=== PATIENT | male | born 1950 | race Caucasian/White ===

== ENCOUNTER 2017-02-27 15:24 | Inpatient (IN) | payer MEDICARE, OTHER ==
[~2017-02-27] VITALS: Ht 177.8 cm; Wt 115.4 kg
[2017-02-27] MEDS ORDERED: dilTIAZem 25 MG/5 ML VIAL IVP ONE (16:00)
[2017-02-27] MEDS ORDERED: IV DEXTROSE 5% 0 ML IV ONE (16:01)
--- NOTE | 2017-02-27 16:02 | RAD ---
INDICATION: atrial flutter with RVR COMPARISON: None. FINDINGS: Single view of chest obtained. No definite focal airspace consolidation. Cardiac silhouette is enlarged. No gross osseous destructive lesion. IMPRESSION: Enlarged cardiac silhouette without definite focal airspace consolidation. Air-filled structure partially seen at upper abdomen. Could be one of the loops of bowel but if there is abdominal symptoms dedicated imaging of the abdomen could be obtained to more completely evaluate the structure since it is only partially seen.
[2017-02-27 16:14] LABS: BASO % 0 % (0-3); EOS # 0.1 x10^3/uL (0.0-0.7); EOS % 1 % (0-3); HEMATOCRIT 40.9 % (39.0-53.0); HEMOGLOBIN 14.4 g/dL (13.0-17.5); LYMPH # 2.7 x10^3/uL (1.0-4.8); LYMPH % 28 % (24-48); MEAN CORPUSCULAR HEMOGLOBIN 32 pg (25-35); MEAN CORPUSCULAR HGB CONC 35 g/dL (31-37); MEAN CORPUSCULAR VOLUME 92 fL (79-100); MONO # 0.9 x10^3/uL (0.0-1.1); MONO % 10 % (0-9); NEUT # 5.9 x10^3uL (1.8-7.7); NEUT % 61 % (31-73); PLATELET COUNT 175 x10^3/uL (140-400); RED BLOOD COUNT 4.46 x10^6/uL (4.30-5.70); RED CELL DISTRIBUTION WIDTH 13.3 % (11.5-14.5); WHITE BLOOD COUNT 9.7 x10^3/uL (4.0-11.0)
--- NOTE | 2017-02-27 16:32 | PHYS DOC ---
Past History Past Medical History: No Pertinent History Smoking: Non-smoker Adult General Chief Complaint Chief Complaint: RAPID HEART RATE HPI HPI 66-year-old male patient was seen by his primary care physician today because of right shoulder pain for 6 weeks and had heart rate of 150s with atrial flutter in EKG and sent to ER for evaluation. Patient denies chest pain, shortness of breath, palpitation, history of irregular heartbeat. Patient complaining of chronic dizziness with a standing position without a new change recently. Patient had a long airplane trip from [place] yesterday without complaining of leg pain or shortness of breath or history of DVT and PE. Review of Systems Review of Systems Constitutional: Denies fever or chills [] Eyes: Denies change in visual acuity, redness, or eye pain [] HENT: Denies nasal congestion or sore throat [] Respiratory: Denies cough or shortness of breath [] Cardiovascular: No additional information not addressed in HPI [] GI: Denies abdominal pain, nausea, vomiting, bloody stools or diarrhea [] : Denies dysuria or hematuria [] Musculoskeletal: Denies back pain, reports joint pain [] Integument: Denies rash or skin lesions [] Neurologic: Denies headache, focal weakness or sensory changes [] Endocrine: Denies polyuria or polydipsia [] All other systems were reviewed and found to be within normal limits, except as documented in this note. Current Medications Current Medications Current Medications Medications (Trade) Dose Ordered Sig/Dez Start Time Stop Time Status Last Admin Dose Admin Dextrose 0 ml @ As Directed STK-MED ONCE 02/27/17 16:01 02/27/17 16:02 DC Diltiazem HCl (Cardizem) 125 mg STK-MED ONCE 02/27/17 16:02 02/27/17 16:03 DC Diltiazem HCl 125 mg/Dextrose 125 ml @ 0 mls/hr 1X ONCE 02/27/17 16:00 02/27/17 16:01 DC Allergies Allergies Allergies Coded Allergies Type Severity Reaction Last Updated Verified Penicillins Allergy Unknown 02/27/17 Yes Physical Exam Physical Exam Constitutional: Well developed, well nourished, no acute distress, non-toxic appearance. [] HENT: Normocephalic, atraumatic, bilateral external ears normal, oropharynx moist, no oral exudates, nose normal. [] Eyes: PERRLA, EOMI, conjunctiva normal, no discharge. [] Neck: Normal range of motion, no tenderness, supple, no stridor. [] Cardiovascular:Irregular regular rhythm with tachycardia, no murmur [] Lungs & Thorax: Bilateral breath sounds clear to auscultation [] Abdomen: Bowel sounds normal, soft, no tenderness, no masses, no pulsatile masses. [] Skin: Warm, dry, no erythema, no rash. [] Back: No tenderness, no CVA tenderness. [] Extremities: No tenderness, no cyanosis, no clubbing, ROM intact, no edema. [] Neurologic: Alert and oriented X 3, normal motor function, normal sensory function, no focal deficits noted. [] Psychologic: Affect normal, judgement normal, mood normal. [] Current Patient Data Vital Signs Vital Signs Date Time Temp Pulse Resp B/P (MAP) Pulse Ox O2 Delivery O2 Flow Rate FiO2 02/27/17 16:08 112 137/71 EKG EKG [EKG interpreted by me. EKG at 1537 showed atrial flutter at a rate of 110, T wave abnormality in inferior leads Radiology/Procedures Radiology/Procedures Chest x-ray was unremarkable] Course & Med Decision Making Course & Med Decision Making Pertinent Labs and Imaging studies reviewed. (See chart for details) Evaluation of patient in ER showed 66-year-old male patient sent by his primary care physician with asymptomatic atrial flutter with heart rate of 150s. Heart rate decreased to 70s with bolus of Cardizem. Patient had atrial flutter at rate of 80 on Cardizem drip. Labs was unremarkable except for mild elevation of d-dimer. CT of chest was negative for PE. Patient had 1 dose of Lovenox ER per recommendation of accepting physician. Dr. Leal accepted admission at 1717. Dragon Disclaimer Dragon Disclaimer This electronic medical record was generated, in whole or in part, using a voice recognition dictation system. Departure Departure: Impression: Primary Impression: Atrial flutter with rapid ventricular response Additional Impressions: Elevated d-dimer Chronic right shoulder pain Disposition: ADMITTED INPATIENT (At 1717) Admitting Physician: Kandice Leal Referrals: FARIDEH GALVEZ MD (PCP) Problem Qualifiers ISAAK VILA MD Feb 27, 2017 16:32
[2017-02-27 16:35] LABS: ALBUMIN 3.7 g/dL (3.4-5.0); ALBUMIN/GLOBULIN RATIO 0.9 (1.0-1.7); CALCIUM 8.8 mg/dL (8.5-10.1); CREATININE 0.8 mg/dL (0.7-1.3); POTASSIUM 4.2 mmol/L (3.5-5.1); TOTAL BILIRUBIN 0.4 mg/dL (0.2-1.0); TOTAL PROTEIN 7.8 g/dL (6.4-8.2)
--- NOTE | 2017-02-27 17:10 | EKG ---
[address] [address] Test Date: 2017-02-27 Test Time: 15:37:24 Pat Name: SARTHAK HUI Department: Room: Gender: M Bookkeeping Assistant: PITA : [id number] Requested By: ISAAK VILA Order Number: [id number] Reading MD: Riley Segura MD Measurements Intervals Dawson Rate: 110 P: [place]: QRS: 91 QRSD: 98 T: 31 QT: 348 QTc: 477 Interpretive Statements ATRIAL FLUTTER, VARIABLE CONDUCTION NSST CHANGES Electronically Signed On 03-05-2017 10:18:09 CORPORATE DEVELOPMENT MANAGER by Riley Segura MD
[2017-02-27] MEDS ORDERED: ENOXAPARIN ** NOTE DOSE ** SYRINGE SQ ONE (17:30)
[2017-02-27] MEDS ORDERED: IOHEXOL 300 MG/ML 75 ML VIAL. IV ONE (17:30)
--- NOTE | 2017-02-27 18:02 | RAD ---
CTA scan of the Chest with Contrast (Pulmonary Embolism protocol) 02/27/2017 Clinical History: Atrial flutter with rapid ventricular response. Elevated d-dimer. Technique: After the intravenous administration of 75 cc of Omnipaque 300, contiguous, 0.625 mm axial sections were obtained through the chest. 2 mm axial and 3D MIP coronal and sagittal reconstructed images were obtained. One or more of the following individualized dose reduction techniques were utilized for this study: 1. Automated exposure control. 2. Adjustment of the mA and/or kV according to patient size. 3. Use of iterative reconstruction technique. Findings: No filling defect is seen within the major branches of either pulmonary artery. There is no CT evidence of pulmonary embolism. The heart is mildly enlarged. Atherosclerotic calcification of the thoracic aorta is seen. The thoracic aorta is tortuous but tapers normally. Minimal dependent subsegmental atelectasis is seen involving both lungs. No area of consolidation, pleural effusion or pneumothorax is seen. Impression: There is no CT evidence of pulmonary embolism. Electronically signed by: Wili Livingston MD (02/27/2017 5:57 PM) [facility]
[2017-02-27 19:20] VITALS: BP 149/71
[2017-02-27] MEDS ORDERED: IBUP200T44 PO (20:17)
[2017-02-27] MEDS ORDERED: PANT20TA58 PO (20:17)
[2017-02-27 20:20] VITALS: BP 133/82
[2017-02-27] MEDS: IBUPROFEN 200 MG TABLET PO PRN (20:46)
[2017-02-27 21:20] VITALS: BP 140/67
[2017-02-27 22:20] VITALS: BP 118/72
[2017-02-27 23:20] VITALS: BP 128/78
[2017-02-28] VITALS (14 sets, daily range): BP systolic 108–146; BP diastolic 58–93
[2017-02-28] MEDS: IBUPROFEN 200 MG TABLET PO PRN ×2 (06:21→14:37)
[2017-02-28] MEDS: PANTOPRAZOLE 40 MG TABLET. PO SCH (08:38)
[2017-02-28] MEDS ORDERED: LIDOCAINE (700MG/PATCH) PATCH. TD PRN (14:45)
--- NOTE | 2017-02-28 14:54 | PDOC2 ---
CONSULT Date of Admission DATE: 02/28/17 TIME: 14:53 Reason for Consult: Atrial flutter Referring Physician: Dr. Leal Chief Complaint Shoulder pain Source: Chart review, Patient Problem List Problems Medical Problems: (1) Atrial flutter with rapid ventricular response Status: Acute (2) Chronic right shoulder pain Status: Acute (3) Elevated d-dimer Status: Acute History of Present Illness 66-year-old male was found to be tachycardic when he presented to his PCPs office with right shoulder pain and was diagnosed with atrial flutter on EKG with heart rate 150 bpm. He was admitted for further management. Patient denied any palpitations as such. He also denied any previous cardiac history. He apparently came back recently from a one-month cruise in [facility] [place] but denied any excessive alcohol intake/binge drinking. He denied any chest pain, orthopnea/PND or syncope. Past Medical History Hyperlipidemia Past Surgical History Cataract and retinal surgery Family History No history of premature coronary artery disease Social History Patient admitted to occasional alcohol intake but denied any smoking or drug abuse Current Medications Current Medications Diltiazem HCl (Cardizem) 20 mg 1X ONCE IVP Last administered on 02/27/17at 16:08 ; Start 02/27/17 at 16:00; Stop 02/27/17 at 16:01; Status DC Diltiazem HCl 125 mg/Dextrose 125 ml @ 0 mls/hr 1X ONCE IV Last administered on 02/27/17at 16:00; Start 02/27/17 at 16:00; Stop 02/27/17 at 16:01; Status DC Dextrose 0 ml @ As Directed STK-MED ONCE IV ; Start 02/27/17 at 16:01; Stop at 16:02; Status DC Diltiazem HCl (Cardizem) 125 mg STK-MED ONCE IV ; Start 02/27/17 at 16:02; Stop 02/27/17 at 16:03; Status DC Iohexol (Omnipaque 300 Mg/ml) 75 ml 1X ONCE IV Last administered on 02/27/17at 17:31; Start 02/27/17 at 17:30; Stop 02/27/17 at 17:31; Status DC Enoxaparin Sodium (Lovenox 120mg Syringe) 120 mg 1X ONCE SQ Last administered on 02/27/17at 18:25; Start 02/27/17 at 17:30; Stop 02/27/17 at 17:31; Status DC Diltiazem HCl 125 mg/Dextrose 125 ml @ 0 mls/hr CONT PRN IV SEE I/O RECORD Last administered on 02/28/17at 08:39; Start 02/27/17 at 19:45 Ibuprofen (Motrin) 200 mg PRN Q4HRS PRN PO PAIN Last administered on 02/28/17at 14:37; Start 02/27/17 at 20:45 Pantoprazole Sodium (Protonix) 40 mg DAILYAC PO Last administered on 02/28/17at 08:38; Start 02/28/17 at 07:30 Lidocaine (Lidoderm) 1 patch PRN DAILY PRN TD PAIN; Start 02/28/17 at 14:45 Active Scripts Active Reported Motrin Ib (Ibuprofen) 200 Mg Tablet 200 Mg PO PRN Q4HRS PRN Protonix (Pantoprazole Sodium) 20 Mg Tablet.dr 20 Mg PO DAILY07 Allergies: Coded Allergies: Penicillins (Verified Allergy, Intermediate, 02/28/17) PSYCHOLOGICAL ROS: No: Hallucinations Eyes: No: Loss of vision HEENT: No: Epistaxis Respiratory: No: Hemoptysis, Shortness of breath Cardiovascular: No: Chest Pain Gastrointestinal: No: Vomiting, Diarrhea Genitourinary: No: Hen[place]ia Neurological: No: Seizures Skin: No: Rash General: Alert, Oriented X3 HEENT: Atraumatic, PERRLA Lungs: Clear to auscultation Heart: Other (heart rate is irregular) Abdomen: Soft Extremities: No edema Psych/Mental Status: Mood NL VITALS Vital Signs Date Time Temp Pulse Resp B/P (MAP) Pulse Ox O2 Delivery O2 Flow Rate FiO2 02/28/17 14:13 97.8 02/28/17 13:47 100 138/73 (94) 02/28/17 09:30 99 Room Air 02/28/17 06:20 15 Labs Laboratory Tests Test 02/27/17 15:45 White Blood Count 9.7 x10^3/uL (4.0-11.0) Red Blood Count 4.46 x10^6/uL (4.30-5.70) Hemoglobin 14.4 g/dL (13.0-17.5) Hematocrit 40.9 % (39.0-53.0) Mean Corpuscular Volume 92 fL (79-100) Mean Corpuscular Hemoglobin 32 pg (25-35) Mean Corpuscular Hemoglobin Concent 35 g/dL (31-37) Red Cell Distribution Width 13.3 % (11.5-14.5) Platelet Count 175 x10^3/uL (140-400) Neutrophils (%) (Auto) 61 % (31-73) Lymphocytes (%) (Auto) 28 % (24-48) Monocytes (%) (Auto) 10 % (0-9) Eosinophils (%) (Auto) 1 % (0-3) Basophils (%) (Auto) 0 % (0-3) Neutrophils # (Auto) 5.9 x10^3uL (1.8-7.7) Lymphocytes # (Auto) 2.7 x10^3/uL (1.0-4.8) Monocytes # (Auto) 0.9 x10^3/uL (0.0-1.1) Eosinophils # (Auto) 0.1 x10^3/uL (0.0-0.7) Basophils # (Auto) 0.0 x10^3/uL (0.0-0.2) Prothrombin Time 10.4 SEC (9.4-11.4) Prothromb Time International Ratio 1.0 (0.9-1.1) D-Dimer (Mili) 0.91 mg/L (0.00-0.50) Sodium Level 142 mmol/L (136-145) Potassium Level 4.2 mmol/L (3.5-5.1) Chloride Level 106 mmol/L (98-107) Carbon Dioxide Level 26 mmol/L (21-32) Anion Gap 10 (6-14) Blood Urea Nitrogen 16 mg/dL (8-26) Creatinine 0.8 mg/dL (0.7-1.3) Estimated GFR (Cockcroft-Gault) 97.0 BUN/Creatinine Ratio 20 (6-20) Glucose Level 106 mg/dL (70-99) Calcium Level 8.8 mg/dL (8.5-10.1) Magnesium Level 2.0 mg/dL (1.8-2.4) Total Bilirubin 0.4 mg/dL (0.2-1.0) Aspartate Amino Transf (AST/SGOT) 40 U/L (15-37) Alanine Aminotransferase (ALT/SGPT) 36 U/L (16-63) Alkaline Phosphatase 69 U/L (46-116) Creatine Kinase 179 U/L (39-308) Creatine Kinase MB (Mass) 2.8 ng/mL (0.0-3.6) Creatine Kinase MB Relative Index 1.6 % (0-4) Troponin I Quantitative < 0.017 ng/mL (0-0.055) DO-Slz-H-Type Natriuretic Peptide 291 pg/mL (0-124) Total Protein 7.8 g/dL (6.4-8.2) Albumin 3.7 g/dL (3.4-5.0) Albumin/Globulin Ratio 0.9 (1.0-1.7) Assessment/Plan 1. Atrial flutter with RVR: Newly diagnosed. Heart rate better controlled with Cardizem infusion. Change this to by mouth. Start Eliquis for stroke prophylaxis. Check 2-D echo to assess LV systolic function and Lexiscan nuclear stress test to rule out ischemia - these tests could however be done as an outpatient. 2. Gastroesophageal reflux disease: Continue proton pump inhibitors Thank you for your consultation Problems: JOSÉ MANUEL GIANG MD Feb 28, 2017 14:54
[2017-02-28] MEDS ORDERED: ACETAMINOPHEN 325 MG TABLET PO PRN (15:45)
[2017-02-28] MEDS: HYDROcodone/APAP 5/325MG 1 TAB TABLET PO PRN ×2 (18:33→22:27)
--- NOTE | 2017-02-28 18:45 | RAD ---
CT of the right shoulder without contrast. Indication: Severe right shoulder pain. No previous exams for comparison. . Technique: Contiguous axial images are obtained. Multiplanar reformatted images are also obtained. Exposure: One or more of the following individualized dose reduction techniques were utilized for this examination: 1. Automated exposure control 2. Adjustment of the mA and/or kV according to patient size 3. Use of iterative reconstruction technique. Comparison study: None available. Findings: Degenerative changes at the acromioclavicular joint with small undersurface osteophytes. Small degenerative spurs at the glenohumeral joint. No evidence of acute fracture. No dislocation. There is mild calcification at the anterior supraspinatus tendon attachment, likely calcium hydroxyapatite due to calcific tendinitis. No obvious soft tissue abnormality. Visualized right upper lung is grossly clear. IMPRESSION: 1. Primary osteoarthritis. 2. No evidence of acute fracture or dislocation. Electronically signed by: Abhay Nguyen MD (02/28/2017 6:42 PM) [facility]
[2017-02-28] MEDS: ENOXAPARIN ** NOTE DOSE ** SYRINGE SQ SCH (20:24)
--- NOTE | 2017-02-28 22:06 | HP ---
ADMIT DATE: 02/27/2017 HISTORY OF PRESENT ILLNESS: The patient is a 66-year-old male patient who went to see his primary care physician because of right shoulder pain that has been going on for almost 6 weeks and was found to have a heart rate of 150 with atrial flutter in EKG, and was sent to ER for evaluation. The patient denied any chest pain, shortness of breath, palpitation, or history of irregular heartbeat. Did complain of chronic dizziness with standing position without any change recently. He apparently had a long airplane trip from [place] the day before admission without complaining of any leg pain or shortness of breath, has no history of DVT or PE. He was evaluated in the Emergency Room and was basically found to be in atrial flutter with a rate of 110 with T-wave abnormalities in inferior leads and basically, the patient was admitted with atrial fibrillation, rapid ventricular response. As he has elevated D-dimer, he has had CT scan of the chest with PE protocol, which showed that there are no filling defects seen within the major branches of either pulmonary arteries. There is no CT evidence of pulmonary embolism. The heart is mildly enlarged. Atherosclerotic calcification of the thoracic aorta is seen. The thoracic aorta is tortuous, but tapers normally. Minimal dependent subsegmental atelectasis is seen involving both lungs. No area of consolidation, pleural effusion or pneumothorax is seen. The patient was started on a Cardizem drip and was given Lovenox and was admitted with a plan to consult the Cardiology team for further evaluation and treatment. PAST MEDICAL HISTORY: Significant for hyperlipidemia with a strong family history of that. PAST SURGICAL HISTORY: Significant for bilateral retinal detachment surgery, cataract extraction, colonoscopy, and esophagogastroduodenoscopy. ALLERGIES: He is allergic to PENICILLIN. MEDICATIONS: He is on Protonix 20 mg daily as well as ibuprofen as needed. FAMILY HISTORY: Significant for 2 brothers who are younger and the sister that he has also has retinal detachment for both eyes and has a brain tumor that was resected, but left her with just probably cerebellopontine angle neuroma. His father is alive at the age of 87 and has hypertension. Mother is alive at age 85 has PE, uterine cancer and splenectomy. SOCIAL HISTORY: He lives with his significant other for the last 12 years. He has 3 daughters and 1 son from previous marriage. He has never smoked, used to smoke cigars and pipes, but not cigarettes. He drinks 1-2 drinks occasionally. 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 REVIEW OF SYSTEMS: The patient denied any blurring of vision, cataract, glaucoma or macular degeneration. Denied any earache, tinnitus or sensorineural deafness. Denied any nosebleeds, stuffy nose or postnasal drip. Denied any sore throat, sore tongue, toothache, hoarseness of voice or difficulty swallowing. Denied any nausea, vomiting, diarrhea or constipation. Denied any hematemesis, melena or hematochezia. Denied any dysuria, frequency or hematuria. Denied any chest pain, shortness of breath, orthopnea, or paroxysmal nocturnal dyspnea. Did complain of cough with whitish to yellowish sputum. Denied any chills, rigors, or fever. He did complain of dizziness, but denied any vertigo. PHYSICAL EXAMINATION: VITAL SIGNS: On arrival to the Emergency Room, his heart rate was 133, blood pressure was 110/68, temperature was 98.2, respiratory rate was 16 and oxygen saturation was 99%. HEAD, EYES, EARS, NOSE AND THROAT: Showed normocephalic, atraumatic. NECK: Supple. HEART: Showed normal first and second sounds. No gallop, rub or murmur. CHEST: Clear to auscultation. No crepitation or rhonchi. ABDOMEN: Distended, soft, nontender. No guarding or rigidity. No organomegaly. Hernial orifice intact. Bowel sounds normal. NEUROLOGIC: He is awake, alert, responding appropriately. Cranial nerves intact. EXTREMITIES: He moves extremities without difficulty, ambulates without assistance or assistive devices. LABORATORY AND DIAGNOSTIC DATA: Showed a white cell count of 9700, hemoglobin 14.4, hematocrit 41, MCV 92, and platelet count 275,000 with normal manual differential. His serum sodium was 142, potassium 4.2, chloride 106, bicarbonate 26, anion gap of 10, BUN 16, creatinine 0.8, estimated GFR was 97 mL per minute, his glucose 106, calcium was 8.8, magnesium 2. Total bilirubin, AST, ALT, alkaline phosphatase were normal. His total protein was 7.8, albumin 3.7. His prothrombin time was 10.4, INR of 1, and D-dimer was 0.91. His chest x-ray showed enlarged cardiac silhouette without definite focal airspace consolidation, air filled structure partially seen at the upper abdomen, could be one of the loops of bowel, but if there is abdominal symptom, ____ image of the abdomen could be obtained to more completely evaluate the structure since it is only partially seen. He has had CT angio of the chest, which basically showed no filling defects are seen within the major branches of either pulmonary artery. There is no CT evidence of pulmonary embolism. The heart is mildly enlarged. Atherosclerotic calcification of the thoracic aorta is seen. The thoracic aorta is tortuous, but tapers normally. Minimal dependent subsegmental atelectasis is seen involving both lungs. No area of consolidation, pleural effusion, or pneumothorax is seen. ASSESSMENT AND PLAN: Basically, the patient was admitted with new onset atrial fibrillation with rapid ventricular response. He was started on Cardizem drip. We will continue with Lovenox and obviously consult the porcelain technician. Check his thyroid function test and decide on further management accordingly. YAHAIRA ROJO MD DR: DOMINIC/neda JOB#: [id number] / [id number]
[2017-02-28] MEDS ORDERED: diphenhydrAMINE HCL 25 MG CAPSULE PO PRN (22:30)
[2017-03-01] VITALS (10 sets, daily range): BP systolic 104–145; BP diastolic 50–91
[2017-03-01] MEDS: HYDROcodone/APAP 5/325MG 1 TAB TABLET PO PRN (02:07)
[2017-03-01 06:41] LABS: HEMATOCRIT 37.8 % (39.0-53.0); HEMOGLOBIN 13.1 g/dL (13.0-17.5); RED BLOOD COUNT 4.12 x10^6/uL (4.30-5.70); WHITE BLOOD COUNT 9.3 x10^3/uL (4.0-11.0)
[2017-03-01 07:00] LABS: ALBUMIN 3.2 g/dL (3.4-5.0); ALBUMIN/GLOBULIN RATIO 0.9 (1.0-1.7); CALCIUM 8.3 mg/dL (8.5-10.1); CREATININE 0.9 mg/dL (0.7-1.3); GFR 84.7; POTASSIUM 4.1 mmol/L (3.5-5.1); TOTAL BILIRUBIN 0.4 mg/dL (0.2-1.0); TOTAL PROTEIN 6.9 g/dL (6.4-8.2)
[2017-03-01] MEDS: PANTOPRAZOLE 40 MG TABLET. PO SCH (08:08)
[2017-03-01] MEDS: ENOXAPARIN ** NOTE DOSE ** SYRINGE SQ SCH (08:52)
[2017-03-01] MEDS ORDERED: APIXABAN 5 MG TABLET. PO SCH (10:00)
[2017-03-01 10:37] LABS: THYROID STIM HORMONE (TSH) 4.149 uIU/mL (0.358-3.740)
[2017-03-01] MEDS ORDERED: APIX5TAB3 PO (12:41)
[2017-03-01] MEDS ORDERED: HYDR-2758 PO (12:41)
[2017-03-01] MEDS ORDERED: DILT240C2 PO (12:41)
--- NOTE | 2017-03-01 16:14 | PN ---
DATE: 02/28/2017 SUBJECTIVE: The patient was admitted yesterday with atrial fibrillation and rapid ventricular response, started on Cardizem drip and his heart rate has much better controlled now and he was switched by the radio script writer to diltiazem. His Cardizem drip was discontinued and he is now on a Cardizem drip 120 mg once a day. I would also put on Lovenox. The patient continued to complain of severe pain in his right shoulder and cough. OBJECTIVE: GENERAL: When I examined him, he was sitting at the edge of the bed comfortably, in no apparent respiratory distress, pale, but no jaundice, cyanosis, or thyromegaly. No jugular venous distention. No limb edema. VITAL SIGNS: His heart rate was 90. His blood pressure was 149/71, temperature was 97.7, respiratory rate was 18 and oxygen saturation was 97% on room air. HEAD, EYES, EARS, NOSE AND THROAT: Normocephalic, atraumatic. NECK: Supple. HEART: Irregular first heart sound. Normal second heart sounds. No gallop, rub or murmur. CHEST: Clear to auscultation. No crepitation or rhonchi. ABDOMEN: Distended, soft, nontender. No guarding or rigidity. No organomegaly. Hernial orifices intact. Bowel sounds normal. NEUROLOGIC: He was awake, alert, responding appropriately. Cranial nerves intact. EXTREMITIES: He moves extremities without difficulty, ambulates without assistance or assistive devices. His intake and output were incompletely recorded. LABORATORY DATA: No lab work done today. We will have to repeat his lab work including his lipid profile and TSH. ASSESSMENT AND PLAN: As he continued to complain of severe pain in right shoulder, I will arrange for him to have a CT scan of the right shoulder and continue with Lovenox ____ and await the recommendation of the radio script writer tomorrow. If his heart rate is well controlled, we can put him on oral anticoagulant and he can go home. YAHAIRA ROJO MD DR: DOMINIC/neda JOB#: [id number] / [id number]
--- NOTE | 2017-03-01 22:45 | DS ---
DATE OF DISCHARGE: 03/01/2017 HOSPITAL COURSE: The patient is sitting comfortably in his chair, in no apparent distress. On questioning him, he denied any complaint. Nursing staff stated that his heart rate continued to be irregular; however, the patient himself does not complain of any palpitation, chest pain, shortness of breath, dizziness or lightheadedness. He was evaluated by the sports physical therapist, who increased his Cardizem to 240 mg once a day and started him on Eliquis and recommended to follow him as an outpatient for an echocardiogram. PHYSICAL EXAMINATION: GENERAL: When I examined him this afternoon, he looked well and was clearly in no apparent respiratory distress. VITAL SIGNS: When I saw him, his heart rate was 110, but it can rise up to 140. His blood pressure was 124/80, temperature was 98, respiratory rate 20, and oxygen saturation was 99% on room air. HEAD, EYES, EARS, NOSE AND THROAT: Normocephalic, atraumatic. NECK: Supple. HEART: Showed normal first and second heart sounds with no gallop, rub or murmur. CHEST: Clear to auscultation. No crepitation or rhonchi. ABDOMEN: Distended, soft, nontender. NEUROLOGIC: He is awake, alert, responding appropriately. Cranial nerves intact. EXTREMITIES: He moves extremities without difficulty, ambulates without assistance or assistive devices. LABORATORY AND DIAGNOSTIC DATA: As of this morning showed a white cell count 9300, hemoglobin 13, hematocrit 38, MCV 92, and platelet count of 148,000. His serum sodium was 143, potassium 4.1, chloride 108, bicarbonate 27, anion gap of 8, BUN 12, creatinine 0.9, estimated GFR was 85 mL per minute, his glucose 111, calcium was 8.3. Total bilirubin, AST, ALT, alkaline phosphatase were normal. His total protein was 6.9, albumin 3.2. His triglycerides were 151, total cholesterol was 137, LDL cholesterol ____, VLDL was 30, HDL was 52 and the ratio was 4. His TSH was slightly elevated at 4.149. His prothrombin time was 10.4 and INR of 1. D-dimer was 0.9. His chest x-ray showed enlarged cardiac silhouette without definite focal airspace consolidation and CT angio of the chest with contrast showed no CT evidence of pulmonary embolism. The heart is mildly enlarged. Atherosclerotic calcification of the thoracic aorta is seen that is tortuous, but tapers normally. There are no areas of consolidation, pleural effusion or pneumothorax seen. He was complaining of right shoulder pain and we did CT scan of the right shoulder, which showed that the patient has degenerative changes at the acromioclavicular joint with small undersurface osteophytes, small degenerative spurs at the glenohumeral joint. There is no evidence of acute fracture or dislocation. There is mild calcification of the anterior supraspinatus tendon attachment likely calcium hydroxyapatite due to calcific tendinitis. No obvious soft tissue abnormality visualized. Right upper lung is grossly clear. DISCHARGE MEDICATIONS: The patient was discharged home to continue on Cardizem 240 mg once a day, Eliquis 5 mg twice a day and hydrocodone ____ 5/325 one tablet every 6 hours. The patient was advised to follow up with his primary care physician, Dr. Silverman, and also an orthopedic surgeon. 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 YAHAIRA ROJO MD DR: DOMINIC/neda JOB#: [id number] / [id number]
== END 2017-03-01 13:26 | disposition home or self-care (01) | DRG 309 ==
LOC: ER 15:24 → EDBD 15:24 → ICU 17:17
PROVIDERS: ADMIT Internal Medicine; ATTEND Internal Medicine
DX: I48.92 Unspecified atrial flutter (principal); J98.11 Atelectasis; E78.00 Pure hypercholesterolemia, unspecified; I48.91 Unspecified atrial fibrillation; M75.31 Calcific tendinitis of right shoulder; E78.5 Hyperlipidemia, unspecified; G89.29 Other chronic pain; K21.9 Gastro-esophageal reflux disease without esophagitis; R79.1 Abnormal coagulation profile; I70.0 Atherosclerosis of aorta; Z98.42 Cataract extraction status, left eye; Z82.49 Family history of ischemic heart disease and other diseases of the circulatory system; H26.9 Unspecified cataract; Z88.0 Allergy status to penicillin; Z98.49 Cataract extraction status, unspecified eye
CPT/HCPCS: 36415; 71045; 71275; 73200; 80053; 80061; 82553; 83735; 83880; 84443; 84484; 85025; 85027; 85379; 85610; 87641; 93005; 96365; 96366; 96372; J1650; J3490; Q0163; Q9967; 99285-25

== ENCOUNTER 2017-03-12 11:41 | Inpatient (IN) | payer MEDICARE, OTHER ==
[~2017-03-12] VITALS: Ht 177.8 cm; Wt 112.3 kg
[2017-03-12] VITALS (7 sets, daily range): BP systolic 115–129; BP diastolic 70–83
[~2017-03-12 11:41] MED LIST: APIX5TAB3 PO; DILT240C2 PO; HYDR-2758 PO; IBUP200T44 PO; PANT20TA58 PO
[2017-03-12 12:48] LABS: BASO # 0.1 x10^3/uL (0.0-0.2); BASO % 1 % (0-3); EOS # 0.1 x10^3/uL (0.0-0.7); EOS % 1 % (0-3); HEMATOCRIT 42.1 % (39.0-53.0); HEMOGLOBIN 14.7 g/dL (13.0-17.5); LYMPH # 2.7 x10^3/uL (1.0-4.8); LYMPH % 26 % (24-48); MEAN CORPUSCULAR HEMOGLOBIN 32 pg (25-35); MEAN CORPUSCULAR HGB CONC 35 g/dL (31-37); MEAN CORPUSCULAR VOLUME 92 fL (79-100); MONO # 0.9 x10^3/uL (0.0-1.1); MONO % 9 % (0-9); NEUT # 6.6 x10^3uL (1.8-7.7); NEUT % 64 % (31-73); PLATELET COUNT 249 x10^3/uL (140-400); RED BLOOD COUNT 4.58 x10^6/uL (4.30-5.70); RED CELL DISTRIBUTION WIDTH 13.2 % (11.5-14.5); WHITE BLOOD COUNT 10.4 x10^3/uL (4.0-11.0)
--- NOTE | 2017-03-12 12:50 | EKG ---
[address] [address] Test Date: 2017-03-12 Test Time: 12:42:24 Pat Name: SARTHAK HUI Department: Room: [facility] 1 Gender: M Fulfillment Associate: PITA : 1950 Requested By: YAHAIRA ROJO Order Number: [id number] Reading MD: Riley Segura MD Measurements Intervals [place] Rate: 91 P: [place]: QRS: 54 QRSD: 92 T: -64 QT: 336 QTc: 415 Interpretive Statements ATRIAL FLUTTER Electronically Signed On 03-20-2017 14:22:37 MAGNETIC TAPE COMPOSER OPERATOR by Riley Segura MD
[2017-03-12 13:12] LABS: ALBUMIN 3.8 g/dL (3.4-5.0); CALCIUM 9.3 mg/dL (8.5-10.1); CREATININE 0.8 mg/dL (0.7-1.3); MAGNESIUM 2.1 mg/dL (1.8-2.4); POTASSIUM 4.5 mmol/L (3.5-5.1); TOTAL BILIRUBIN 0.3 mg/dL (0.2-1.0); TOTAL PROTEIN 7.7 g/dL (6.4-8.2)
[2017-03-12] MEDS ORDERED: AMIODARONE 150 MG in IV DEXTROSE 5% 100 ML IVP ONE (13:15)
[2017-03-12] MEDS ORDERED: AMIODARONE 900 MG in IV DEXTROSE 5% 500 ML IV ONE (13:30)
[2017-03-12 13:32] LABS: INFLUENZA A PATIENT NEGATIVE (NEGATIVE); INFLUENZA B PATIENT NEGATIVE (NEGATIVE)
[2017-03-12] MEDS ORDERED: APAP PO PRN (13:45)
[2017-03-12] MEDS ORDERED: HYDROCODONE PO PRN (13:45)
--- NOTE | 2017-03-12 15:28 | CARD ---
MR#: [id number] Date of Study: 03/12/2017 Ordering Physician: YAHAIRA ROJO, Referring Physician: YAHAIRA ROJO, Jesus: Leila Cardenas [facility] APPROVED REPORT EXAM: Two-dimensional and M-mode echocardiogram with Doppler and color Doppler. Other Information Quality : Poor INDICATION Arrhythmia 2D DIMENSIONS Left Atrium(2D)3.7 (1.6-4.0cm)IVSd1.4 (0.7-1.1cm) Aortic Root(2D)4.1 (2.0-3.7cm)LVDd4.3 (3.9-5.9cm) LVOT Diameter2.1 (1.8-2.4cm)IVSs1.2 (0.8-1.2cm) LVDs2.9 (2.5-4.0cm)FS (%) 33.6 % SV53.0 mlLVEF(%)62.7 (>50%) Aortic Valve AoV Peak German.148.2cm/Timmy Peak GR.8.8mmHg Tricuspid Valve RAP [id number] LEFT VENTRICLE The left ventricle is normal size. There is mild concentric left ventricular hypertrophy. The left ve ntricular systolic function is normal and the ejection fraction is within normal range. The Ejection Fraction is 55%. There is grossly normal LV segmental wall motion. Limited evaluation due to tachycar silvio and afib. Tissue Doppler imaging reveals moderate left ventricular diastolic dysfunction. RIGHT VENTRICLE The right ventricle is normal size. There is normal right ventricular wall thickness. The right ventr icular systolic function is normal. ATRIA The left atrium size is normal. The right atrium size is normal. The interatrial septum is intact wit h no evidence for an atrial septal defect or patent foramen ovale as noted on 2-D or Doppler imaging. AORTIC VALVE The aortic valve is mildly sclerotic. Doppler and Color Flow revealed no significant aortic regurgita tion. There is no significant aortic valvular stenosis. MITRAL VALVE The mitral valve is normal in structure and function. There is no evidence of mitral valve prolapse. There is no mitral valve stenosis. Doppler and Color Flow revealed no mitral valve regurgitation note d. TRICUSPID VALVE The tricuspid valve is normal in structure and function. Doppler and Color Flow revealed trace tricus pid regurgitation. There is no tricuspid valve stenosis. PULMONIC VALVE Doppler and Color Flow revealed no pulmonic valvular regurgitation. There is no pulmonic valvular ivelisse nosis. GREAT VESSELS The aortic root is normal in size. The ascending aorta is mildly dilated. The IVC is normal in size a nd collapses >50% with inspiration. PERICARDIAL EFFUSION There is no pleural effusion. There is no evidence of significant pericardial effusion. Critical Notification Critical Value: No <Conclusion> The left ventricular systolic function is normal and the ejection fraction is within normal range. Th e Ejection Fraction is 55%. There is grossly normal LV segmental wall motion. Limited evaluation due to tachycardia and afib. Signed by : Riley Segura, Electronically Approved : 03/12/2017 15:28:21
--- NOTE | 2017-03-12 15:44 | HP ---
ADMIT DATE: 03/12/2017 HISTORY OF PRESENT ILLNESS: The patient is a 66-year-old male patient who apparently was seen today by his primary care physician and was found to be in atrial fibrillation with rapid ventricular response despite treatment with Cardizem. Dr. Silverman was contacted and he recommended admitting him back to the hospital and to start him on amiodarone drip. The patient himself denied any complaint. However, he said that his girlfriend always checks his heart rate and has been always consistently in the 130-140 despite being on Cardizem 240 mg twice a day. He was in fact discharged from this facility only recently when ____ he was incidentally found to be in atrial fibrillation with rapid ventricular response. At that time, he was complaining also of right shoulder pain that actually has somewhat improved, but although has not completely resolved. PAST MEDICAL HISTORY: Significant for hyperlipidemia and strong family history of heart disease. He was diagnosed recently with atrial fibrillation with rapid ventricular response, for which he was started on Cardizem and apixaban. PAST SURGICAL HISTORY: Significant for bilateral retinal detachment surgery, cataract extraction, colonoscopy and esophagogastroduodenoscopy. ALLERGIES: He is allergic to PENICILLIN. MEDICATIONS: The patient was discharged to continue on Cardizem-CD 240 mg once a day, Eliquis 5 mg twice a day, hydrocodone/APAP 5/325 one tablet every 6 hours. He was also on Protonix 40 mg once a day. FAMILY HISTORY: He has 2 brothers who are younger and a sister ____ he has also some retinal detachment for both eyes and has a brain tumor that was resected, but left with some deficit. His father is alive at age of 87 and has hypertension. His mother is alive at age of 85 and has PE, uterine cancer, and splenectomy. SOCIAL HISTORY: He lives with his significant other for the last 3 years. He has 2 daughters and 1 son from a previous marriage. He has never smoked, used to smoke cigars and pipe, but not cigarettes. He drinks 1-2 drinks occasionally. 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 REVIEW OF SYSTEMS: The patient denied any blurring of vision, cataract, glaucoma or macular degeneration. Denied any earache, tinnitus or sensorineural deafness. Denied any nosebleeds, stuffy nose or postnasal drip. Denied any sore throat, sore tongue, toothache, hoarseness of voice or difficulty swallowing. Denied any nausea, vomiting, diarrhea or constipation. Denied any hematemesis, melena or hematochezia. Denied any dysuria, frequency or hematuria. Denied any chest pain, shortness of breath, orthopnea or paroxysmal nocturnal dyspnea. Did complain of cough with whitish to yellowish sputum. Denied any chills, rigors, or fever. Continued to complain of right shoulder pain, although the intensity and the frequency are much less than before. PHYSICAL EXAMINATION: GENERAL: When I examined him this afternoon, he looked well and was clearly in no apparent respiratory distress, slightly pale, but no jaundice, cyanosis, or thyromegaly. No jugular venous distension. No limb edema. VITAL SIGNS: His heart rate was 115, blood pressure was 124/80, temperature was 98, respiratory rate 20, and oxygen saturation was 99% on room air. HEAD, EYES, EARS, NOSE AND THROAT: Normocephalic, atraumatic. NECK: Supple. HEART: Showed normal first and second heart sounds. No gallop, rub or murmur. CHEST: Clear to auscultation. No crepitation or rhonchi. ABDOMEN: Distended, soft, nontender. No guarding or rigidity. No organomegaly. Hernial orifices intact. Bowel sounds normal. NEUROLOGIC: He was awake, alert, responding appropriately. Cranial nerves intact. He moves extremities without difficulty, ambulates without assistance or assistive devices. LABORATORY DATA: His lab work showed a white cell count of 10,400, hemoglobin 14.7, hematocrit 42, MCV 92, and platelet count 249,000. Serum sodium was 137, potassium 4.5, chloride 101, bicarbonate 25, anion gap of 11, BUN 15, creatinine 0.8, estimated GFR was 97. His glucose was 102, calcium was 9.3, magnesium 2.1. Total bilirubin and alkaline phosphatase normal. AST and ALT were elevated. Troponin was less than 0.017. Total protein was 7.7, albumin 3.8. IMPRESSION: Atrial fibrillation with rapid ventricular response. PLAN: To start him on amiodarone drip as recommended by Dr. Silverman. Continue with apixaban. Continue with all his other medications including his hydrocodone/APAP, Protonix 40 mg once a day, apixaban 5 mg twice a day and diltiazem 240 mg once a day. YAHAIRA ROJO MD DR: DOMINIC/neda JOB#: [id number] / [id number]
[2017-03-12] MEDS: APIXABAN 5 MG PO SCH (20:37)
[2017-03-12] MEDS ORDERED: APIXABAN 5 MG TABLET. PO SCH (21:00)
[2017-03-13] VITALS (14 sets, daily range): BP systolic 94–125; BP diastolic 60–86
[2017-03-13 06:59] LABS: CALCIUM 8.8 mg/dL (8.5-10.1); CREATININE 0.9 mg/dL (0.7-1.3); GFR 84.7
[2017-03-13] MEDS ORDERED: PANTOPRAZOLE 20 MG TABLET. PO SCH (07:00)
[2017-03-13] MEDS ORDERED: PANTOPRAZOLE 40 MG TABLET. PO SCH (07:30)
[2017-03-13] MEDS: APIXABAN 5 MG PO SCH (07:56)
--- NOTE | 2017-03-13 08:42 | PDOC2 ---
CONSULT Date of Admission DATE: 03/13/17 TIME: 08:33 Reason for Consult: atrial flutter with RVR History of Present Illness 66-year-old male recently seen in the hospital with atrial flutter and shoulder pain was treated with rate control, anticoagulation and planned for outpatient follow up with MPI and echo. He presented to his PCP office yesterday for hospital follow up and was found to be again tachycardic in the 150s. He was admitted for rate control and consult was called. He denied any chest pain, palpitations, orthopnea/PND or syncope. Past Medical History Echo 03/12/17 The left ventricular systolic function is normal and the ejection fraction is within normal range. The Ejection Fraction is 55%. There is grossly normal LV segmental wall motion. Limited evaluation due to tachycardia and afib. Hyperlipidemia atrial flutter Past Surgical History Cataract and retinal surgery Family History No history of premature coronary artery disease Social History non smoker, occasional alcohol intake, no illicit drugs Current Medications Current Medications Amiodarone HCl 150 mg/Dextrose 103 ml @ 618 mls/hr 1X ONCE IVP Last administered on 03/12/17at 13:28; Start 03/12/17 at 13:15; Stop 03/12/17 at 13:27 ; Status DC Amiodarone HCl 900 mg/Dextrose 518 ml @ 0 mls/hr 1X ONCE IV Last administered on 03/12/17at 13:28; Start 03/12/17 at 13:30; Stop 03/12/17 at 13:33; Status DC Apixaban (Eliquis) 5 mg BID PO ; Start 03/12/17 at 21:00; Stop 03/12/17 at 21:00 ; Status DC Non-Formulary Medication 1 ea DAILY PO Last administered on 03/13/17at 07:56; Start 03/13/17 at 09:00 Non-Formulary Medication 1 ea PRN Q6HRS PRN PO PAIN Last administered on at 23:37; Start 03/12/17 at 13:45 Pantoprazole Sodium (Protonix) 20 mg DAILY07 PO ; Start 03/13/17 at 07:00; Stop 03/13/17 at 07:00; Status DC Non-Formulary Medication 1 ea BID PO Last administered on 03/13/17at 07:56; Start 03/12/17 at 21:00 Pantoprazole Sodium (Protonix) 40 mg DAILYAC PO Last administered on 03/13/17at 07:56; Start 03/13/17 at 07:30 Active Scripts Active Hydrocodone-Apap 5-325 (Hydrocodone Bit/Acetaminophen) 1 Each Tablet 1 Tab PO PRN Q6HRS PRN 30 Days Eliquis (Apixaban) 5 Mg Tablet 5 Mg PO BID 30 Days Cardizem Cd (Diltiazem Hcl) 240 Mg Cap.er.24h 1 Cap PO DAILY Reported Motrin Ib (Ibuprofen) 200 Mg Tablet 200 Mg PO PRN Q4HRS PRN Protonix (Pantoprazole Sodium) 20 Mg Tablet.dr 20 Mg PO DAILY07 Allergies: Coded Allergies: Penicillins (Verified Allergy, Intermediate, 02/28/17) Review of System as per HPI General: Alert, Oriented X3, Cooperative, No acute distress HEENT: Atraumatic, EOMI Lungs: Clear to auscultation, Normal air movement Heart: Other (irregular rate and rhythm, no gallops, clicks or rubs, no significant murmurs) Abdomen: Normal bowel sounds, Soft, No tenderness Extremities: No cyanosis, Normal pulses Neuro: Normal speech, Strength at 5/5 X4 ext Psych/Mental Status: Mental status NL, Mood NL VITALS Vital Signs Date Time Temp Pulse Resp B/P (MAP) Pulse Ox O2 Delivery O2 Flow Rate FiO2 03/13/17 07:00 104 23 125/76 (92) 95 Room Air 03/13/17 06:00 97.8 Labs Laboratory Tests Test 03/12/17 12:10 03/12/17 12:12 03/12/17 12:20 03/13/17 05:45 Nasal Screen MRSA (PCR) Negative (Negative) Influenza Type A (Rapid) Negative (NEGATIVE) Influenza Type B (Rapid) Negative (NEGATIVE) White Blood Count 10.4 x10^3/uL (4.0-11.0) Red Blood Count 4.58 x10^6/uL (4.30-5.70) Hemoglobin 14.7 g/dL (13.0-17.5) Hematocrit 42.1 % (39.0-53.0) Mean Corpuscular Volume 92 fL (79-100) Mean Corpuscular Hemoglobin 32 pg (25-35) Mean Corpuscular Hemoglobin Concent 35 g/dL (31-37) Red Cell Distribution Width 13.2 % (11.5-14.5) Platelet Count 249 x10^3/uL (140-400) Neutrophils (%) (Auto) 64 % (31-73) Lymphocytes (%) (Auto) 26 % (24-48) Monocytes (%) (Auto) 9 % (0-9) Eosinophils (%) (Auto) 1 % (0-3) Basophils (%) (Auto) 1 % (0-3) Neutrophils # (Auto) 6.6 x10^3uL (1.8-7.7) Lymphocytes # (Auto) 2.7 x10^3/uL (1.0-4.8) Monocytes # (Auto) 0.9 x10^3/uL (0.0-1.1) Eosinophils # (Auto) 0.1 x10^3/uL (0.0-0.7) Basophils # (Auto) 0.1 x10^3/uL (0.0-0.2) Sodium Level 137 mmol/L (136-145) 142 mmol/L (136-145) Potassium Level 4.5 mmol/L (3.5-5.1) 4.0 mmol/L (3.5-5.1) Chloride Level 101 mmol/L (98-107) 104 mmol/L (98-107) Carbon Dioxide Level 25 mmol/L (21-32) 28 mmol/L (21-32) Anion Gap 11 (6-14) 10 (6-14) Blood Urea Nitrogen 15 mg/dL (8-26) 14 mg/dL (8-26) Creatinine 0.8 mg/dL (0.7-1.3) 0.9 mg/dL (0.7-1.3) Estimated GFR (Cockcroft-Gault) 97.0 84.7 BUN/Creatinine Ratio 19 (6-20) Glucose Level 102 mg/dL (70-99) 112 mg/dL (70-99) Calcium Level 9.3 mg/dL (8.5-10.1) 8.8 mg/dL (8.5-10.1) Magnesium Level 2.1 mg/dL (1.8-2.4) Total Bilirubin 0.3 mg/dL (0.2-1.0) Aspartate Amino Transf (AST/SGOT) 41 U/L (15-37) Alanine Aminotransferase (ALT/SGPT) 70 U/L (16-63) Alkaline Phosphatase 64 U/L (46-116) Creatine Kinase 141 U/L (39-308) Creatine Kinase MB (Mass) 2.0 ng/mL (0.0-3.6) Creatine Kinase MB Relative Index 1.4 % (0-4) Troponin I Quantitative < 0.017 ng/mL (0-0.055) LL-Ikn-V-Type Natriuretic Peptide 32 pg/mL (0-124) Total Protein 7.7 g/dL (6.4-8.2) Albumin 3.8 g/dL (3.4-5.0) Albumin/Globulin Ratio 1.0 (1.0-1.7) Images EKG - atrial flutter with CVR, no acute ischemic changes Assessment/Plan 1. atrial fib / flutter with RVR - improved rate control. Echo with normal LVEF and grossly normal wall motion. Plan to continue cardizem and amiodarone for rate control. Continue Eliquis for stroke prophylaxis and plan for outpatient cardioversion after 2-3 weeks more of anticoagulation and outpatient MPI. Problems: EBEN FISCHER ASSEMBLY MANAGER Mar 13, 2017 08:42
[2017-03-13] MEDS ORDERED: DILTIAZEM 240 MG PO SCH (09:00)
[2017-03-13] MEDS ORDERED: AMIO200T2 PO (13:28)
[2017-03-13] MEDS ORDERED: AMIODARONE HCL 200 MG TABLET PO SCH (21:00)
--- NOTE | 2017-03-13 22:47 | PN ---
DATE: 03/13/2017 HISTORY OF PRESENT ILLNESS: The patient was admitted again with another episode of atrial fibrillation with rapid ventricular response and was started on amiodarone drip and switched today to amiodarone 200 mg twice a day with plan to continue Cardizem and amiodarone for rate control as well as Eliquis for stroke prophylaxis and he will have an outpatient cardioversion after 2 to 3 weeks and an outpatient nuclear stress test. PHYSICAL EXAMINATION: GENERAL: When I saw him today, he looked well and was clearly in no apparent respiratory distress. No jaundice, cyanosis, or thyromegaly. No jugular venous distension. No limb edema. VITAL SIGNS: His heart rate was 62, blood pressure was 106/69, temperature was 98, respiratory rate was 15 and oxygen saturation was 96% on room air. HEAD, EYES, EARS, NOSE AND THROAT: Normocephalic, atraumatic. NECK: Supple. HEART: Showed normal first and second heart sounds with no gallop, rub, or murmur. CHEST: Clear to auscultation. No crepitation or rhonchi. ABDOMEN: Distended, soft, nontender. No guarding or rigidity. No organomegaly. Hernial orifices intact. Bowel sounds normal. NEUROLOGIC: He was awake, alert, responding appropriately. All his cranial nerves are intact. He moves extremities without difficulty, ambulates without assistance or assistive devices. LABORATORY DATA: Showed a serum sodium 142, potassium 4, chloride 104, bicarbonate 28, anion gap of 10, BUN 14, creatinine 0.9, estimated GFR was 85 mL per minute, his glucose 112, calcium was 8.8. His magnesium was 2.1. Total bilirubin and alkaline phosphatase normal. AST, ALT slightly elevated. Total protein 7.7, albumin 3.8. His white cell count was 10,400, hemoglobin 14.7, hematocrit 42, MCV 92, and platelet count 246. DISCHARGE MEDICATIONS: He will be discharged home on amiodarone 200 mg twice a day for one week and then 200 mg once a day, apixaban 5 mg twice a day, diltiazem 240 mg once a day, hydrocodone/APAP 5/325 one tablet every 6 hours as needed, Protonix 20 mg once a day. The patient was advised not to use a nonsteroidal anti-inflammatory medication while he is on apixaban. FINAL DISCHARGE DIAGNOSES: 1. Atrial flutter with rapid ventricular response rate, now controlled, will anticoagulated on apixaban. 2. Hyperlipidemia. The patient has had an echocardiogram which showed his left ventricular systolic function normal, ejection fraction was within normal range at 55% with grossly normal left ventricular segmental wall motion. He has an appointment with the cardiology team for nuclear stress test next week and in 2-3 weeks' time for cardioversion. YAHAIRA ROJO MD DR: DOMINIC/neda JOB#: [id number] / [id number]
== END 2017-03-13 13:30 | disposition home or self-care (01) | DRG 309 ==
LOC: ICU 11:49
PROVIDERS: ADMIT Internal Medicine; ATTEND Internal Medicine
DX: I48.91 Unspecified atrial fibrillation (principal); D68.69 Other thrombophilia; E78.5 Hyperlipidemia, unspecified; I48.92 Unspecified atrial flutter; Z82.49 Family history of ischemic heart disease and other diseases of the circulatory system; Z98.42 Cataract extraction status, left eye; Z98.41 Cataract extraction status, right eye; Z88.0 Allergy status to penicillin; Z80.59 Family history of malignant neoplasm of other urinary tract organ; Z79.01 Long term (current) use of anticoagulants
CPT/HCPCS: 36415; 80048; 80053; 82553; 83735; 83880; 84484; 85025; 87641; 87804; 93005; 93306; J0282

== ENCOUNTER → 2018-10-27 | Outpatient (CLI) | payer MEDICARE, OTHER ==
[2017-03-13 14:15] VITALS: BP 106/69
[~2018-10-27] MED LIST changes: +AMIO200T4 PO; +HYDR-2155 PO; -HYDR-2758 PO
--- NOTE | 2018-10-28 13:07 | CARD ---
MR#: [id number] Date of Study: 10/27/2018 Ordering Physician: JOSÉ MANUEL GIANG, Referring Physician: JOSÉ MANUEL GIANG Tech: Annabel Martin RDCS APPROVED REPORT EXAM: Two-dimensional and M-mode echocardiogram with Doppler and color Doppler. Other Information Quality : AverageHR: 48bpm Rhythm : Bradycardia INDICATION Arrhythmia 2D DIMENSIONS RVDd3.0 (2.9-3.5cm)Left Atrium(2D)4.1 (1.6-4.0cm) IVSd1.3 (0.7-1.1cm)Aortic Root(2D)3.3 (2.0-3.7cm) LVDd5.3 (3.9-5.9cm)LVOT Diameter2.2 (1.8-2.4cm) PWd1.2 (0.7-1.1cm)LVDs3.4 (2.5-4.0cm) FS (%) 36.2 %SV86.8 ml Aortic Valve AoV Peak German.155.1cm/sAoV VTI33.2cm AO Peak GR.9.6mmHgLVOT Peak German.96.1cm/s LVOT VTI 22.59cmAO Mean GR.4mmHg YOLI (VMAX)2.86xo2VIC (VTI)2.54cm2 Mitral Valve MV E Zmurcxcu699.9cm/sMV DECEL FRFM946rh MV A Pwidjmoi16.7cm/sE/A Ratio1.3 Pulmonary Valve PV Peak Ccxlilko31.3cm/sPV Peak Grad.3mmHg Tricuspid Valve TR P. Svllcnhl542bx/sRAP AOBFVNFV2vkDq TR Peak Gr.79iuIfLGCS27wwEy Pulmonary Vein S1 Rzuwfowi10.8cm/sD2 Ghqvqfot19.3cm/s LEFT VENTRICLE The left ventricle is normal size. There is mild concentric left ventricular hypertrophy. The left ve ntricular systolic function is normal and the ejection fraction is within normal range. The Ejection Fraction is 60-65%. There is normal LV segmental wall motion. Transmitral Doppler flow pattern is Gra de II-pseudonormal filling dynamics. RIGHT VENTRICLE The right ventricle is normal size. There is normal right ventricular wall thickness. The right ventr icular systolic function is normal. ATRIA The left atrium is mildly dilated. The right atrium size is normal. The interatrial septum is intact with no evidence for an atrial septal defect or patent foramen ovale as noted on 2-D or Doppler imagi ng. AORTIC VALVE The aortic valve is normal in structure and function. The aortic valve is trileaflet. Doppler and Col or Flow revealed no significant aortic regurgitation. There is no significant aortic valvular stenosi s. There is no aortic valvular vegetation. MITRAL VALVE The mitral valve is normal in structure and function. There is no evidence of mitral valve prolapse. There is no mitral valve stenosis. Doppler and Color-flow revealed trace mitral regurgitation. TRICUSPID VALVE The tricuspid valve is normal in structure and function. Doppler and Color Flow revealed trace tricus pid regurgitation. The PA pressure was estimated at 28 mmHg. There is no tricuspid valve prolapse or vegetation. There is no tricuspid valve stenosis. PULMONIC VALVE The pulmonic valve is not well visualized. GREAT VESSELS The aortic root is normal in size. The ascending aorta is normal in size. The IVC is normal in size a nd collapses >50% with inspiration. PERICARDIAL EFFUSION There is no evidence of significant pericardial effusion. Critical Notification Critical Value: No <Conclusion> The left ventricle is normal size. The left ventricular systolic function is normal and the ejection fraction is within normal range. The Ejection Fraction is 60-65%. There is mild concentric left ventricular hypertrophy. There is no significant aortic valvular stenosis. Doppler and Color Flow revealed no significant aortic regurgitation. Doppler and Color-flow revealed trace mitral regurgitation. Doppler and Color Flow revealed trace tricuspid regurgitation. The PA pressure was estimated at 28 mmHg. Signed by : Eb Rivera MD Electronically Approved : 10/27/2018 09:32:32
== END | disposition home or self-care (01) ==
LOC: ECHO 08:32
PROVIDERS: ATTEND Internal Medicine Cardiovascular Disease
DX: I51.7 Cardiomegaly (principal); I48.92 Unspecified atrial flutter
CPT/HCPCS: 93306

== ENCOUNTER → 2020-09-25 | Outpatient (CLI) | payer MEDICARE, OTHER ==
[2017-03-13 14:15] VITALS: BP 106/69
[~2020-09-25] MED LIST changes: -AMIO200T4 PO; +AMIO200T6 PO; +REGADENOSON 0.4 MG/5 ML DISP.SYRIN. IV ONE
--- NOTE | 2020-09-25 16:20 | RAD ---
MR#: [id number] Date of Study: 09/25/2020 Ordering Physician: JOSÉ MANUEL GIANG, Referring Physician: JOSE TROTTER Tech: GLORIA Bonilla ARRT (R) (N) APPROVED REPORT Test Type: Pharmacological Stress Nurse/Tech: ISACC Vargas Test Indications: arial flutter Cardiac History: See Electronic Medical Record Medications: See Electronic Medical Record Medical History: See Electronic Medical Record Resting ECG: sr Resting Heart Rate: 51 bpm Resting Blood Pressure: 137/71mmHg Pretest Chest Pain: None Nurse/Tech Notes sr/sb no significant acute changes with stress Consent: The procedure was explained to the patient in lay terms. Informed consent was witnessed. Jose eout was entered into [employer]. History and Stress Test performed by GLORIA Bonilla ARRT (R) (N) Pharm. Details Pharmacologic stress testing was performed using 0.4mg per 5ml of regadenoson given intravenously ove r 7-10 seconds. There was low-level exercise performed along with the infusion Stress Symptoms No chest pain or symptoms. POST EXERCISE Reason for Termination: Infusion complete Target HR: No Max HR: 62 bpm 45% of Maximum Predicted HR: 136 bpm Exercise duration: 6 min:sec, Stage Max Blood Pressure: 122/60mmHg Blood Pressure response to exercise: Normal blood pressure response during stress. Chest Pain: No. Arrhythmia: No. ST Change: No. INTERPRETATION Stress EKG Conclusion: sr/sb no significant acute changes with stress. Imaging Protocol IMAGE PROTOCOL: Rest Tc-99m/stress Tc-99m 1 day Rest: Stress: Viability: Radiopharm.Tc99m DktstefbtUg82l Sestamibi Rxbj28hPq 31.1mCi Img Date 09/25/2020 09/25/2020 Inj-Img [id number]. 60min. Rest Admin Site:IV - Right AntecubitalAdministrator: GLORIA Bonilla ARRT (R)(N) Stress Admin Site: IV - Right AntecubitalAdministrator: Lotus Rivers, NMTCB, ARRT (R)(N) STRESS DATA End Diast. Vol.136.0mlAv. Heart Rate58.0bpm End Syst. Vol.35.0mlCO Index BSA0.0L/min Myocardial Uqbg034.0gEject. Cxbjlnkp67.0% Stress Rates Pk. Fill Rate2.74EDV/secLVtime Pk. Fill 186.13msec Pk. Empty Rate3.46ESV/secLVtime Pk. Uyfsg590.34msec 02/25 Pk. Fill1.54EDV/sec Stress Scores Regional WT0.00Summed WT0.00 Regional WM0.00Summed WM0.00 The rest and stress images show normal perfusion, normal contraction and thickening. LV Perf. Quant 17 Seg. SSS0.00 17 Seg. SRS3.00 17 Seg. SDS0.00 Stress Defect Extent (% LAD)0.00Rest Defect Extent (% LAD)5.60Rev. Defect Extent (% LAD)0.00 Stress Defect Extent (% LCX) 0.00Rest Defect Extent (% LCX)0.00Rev. Defect Extent (% LCX)0.00 Stress Defect Extent (% RCA)0.00Rest Defect Extent (% RCA)11.10Rev. Defect Extent (% RCA)0.00 Stress Defect Extent (% HENRIQUE)0.00Rest Defect Extent (% HENRIQUE)5.20Rev. Defect Extent (% HENRIQUE)0.00 Other Information Quality:Average Risk Assessment: Low Risk Conclusion 1. No evidence of EKG changes with stress testing. 2. Normal perfusion at stress/rest. 3. Low risk study. 4. EF > 60%. Signed by : Riley Segura, Electronically Approved : 09/25/2020 16:19:38
== END ==
LOC: NM 07:43
PROVIDERS: ATTEND Internal Medicine Cardiovascular Disease
DX: I48.92 Unspecified atrial flutter (principal)
CPT/HCPCS: 78452; 93017; A9500; J2785